=== PATIENT | female | born 1985 | race Caucasian/White ===

== ENCOUNTER 2021-06-25 08:44 | Emergency (ER) | payer OTHER, SELFPAY ==
--- NOTE | ~2021-06-25 | CT_ITS ---
EXAMINATION: CT abdomen pelvis w con DATE: 06/25/2021 10:23 INDICATION: Abdominal pain TECHNIQUE: Computed tomography (CT) of the abdomen and pelvis was performed with 100 cc Omnipaque 350 intravenous contrast. Automated exposure control and iterative reconstruction technique were employe d. Exam dose: 559.13 mGy-cm total exam DLP. COMPARISON: None. FINDINGS: The lung bases are clear. Normal heart size. No pericardial or pleural effusion. The liver, gallbladder, bile duct, spleen, pancreas, pancreatic duct, and adrenal glands and kidneys are unremarkable. No urinary tract calculus or hydroureteronephrosis. Status post hysterectomy. 2 cm left ovarian cyst. The urinary bladder is unremarkable. Normal caliber of the abdominal aorta. No intraperitoneal or retroperitoneal or pelvic mass lesion or adenopathy or ascites. Normal appendix. There is mild diverticulosis of left colon. There is prominent pericolic fat stranding as well as thi ckening of the anterior pararenal and lateroconal fascia in the region of the distal descending colon , consistent with diverticulitis. No abscess or intraperitoneal free air is identified. Small fat-containing umbilical hernia. Included skeletal structures are unremarkable. IMPRESSION: Diverticulitis of the distal descending colon; no abscess or free air identified Reviewed, dictated and finalized at [facility]. Reviewed, dictated and finalized at [facility]. [employer]
[2021-06-25 08:49] VITALS: BP 138/96; PULSE 104; RESP 20; TEMP 36.8; O2SAT 100
[2021-06-25 08:58] VITALS: PULSE 109; RESP 15; O2SAT 100
[2021-06-25 09:00] VITALS: PULSE 108; RESP 28; O2SAT 100
[2021-06-25 09:01] VITALS: BP 134/97; PULSE 108; RESP 25; O2SAT 100
[2021-06-25 09:15] VITALS: PULSE 100; RESP 18; O2SAT 99
[2021-06-25 09:15] LABS: Basophils Absolute Auto 0.1 K/mm3 (0.0-0.1); Basophils Percent Auto 0.4 % (0.2-1.2); Eosinophils Absolute Auto 0.1 K/mm3 (0-0.3); Eosinophils Percent Auto 0.4 % (0-4.4); Hematocrit 41.1 % (37.0-47.0); Hemoglobin 14.7 g/dL (12.0-15.0); Immature Granulocyte Absolute 0.05 K/mm3 (0.00-0.031); Immature Granulocyte Percent A 0.4 % (0-0.5); Lymphocytes Absolute Auto 1.73 K/mm3 (0.9-3.2); Lymphocytes Percent Auto 13.1 % (18.3-44.2); Mean Corpuscular HGB Conc 35.8 g/dl (32-36); Mean Corpuscular Hemoglobin 31.8 pg (26-34); Mean Platelet Volume 10.2 fl (7.4-10.4); Monocytes Percent Auto 7.7 % (2.6-8.5); Neutrophils Absolute Auto 10.3 K/mm3 (1.3-6.7); Platelet Count Result 292 k/mm3 (150-375); Red Blood Count 4.62 M/mm3 (4.2-5.4); Red Cell Distribution Width 11.9 % (11.5-14.5); White Blood Count 13.2 K/mm3 (4.5-10.0)
[2021-06-25 09:16] VITALS: BP 120/91; PULSE 99; RESP 12; O2SAT 99
--- NOTE | 2021-06-25 09:18 | ED.ABDPAIN ---
HPI - Abdominal Pain General Chief Complaint: Abdominal Pain Stated Complaint: rlq pain Time Seen by Provider: 06/25/21 09:10 Source: patient and RN notes reviewed Mode of arrival: ambulatory Limitations: no limitations History of Present Illness HPI narrative: Patient is a 36-year-old female who presents to emergency department for evaluation of abdominal pain that began over the course of the last 24 hours starting is an aching pain in the abdomen that has intensified with generalized pain throughout the abdomen worse with activity and movement patient does note some decreased appetite denies any diarrhea constipation urinary vaginal complaints or URI symptoms. Patient is not take anything for her symptoms. Patient now complains of severe abdominal pain Related Data Home Medications Medication Instructions Recorded Confirmed desvenlafaxine succinate 50 mg PO 06/25/21 Allergies Allergy/AdvReac Type Severity Reaction Status Date / Time codeine Allergy Mild itching Verified 06/25/21 09:15 Review of Systems Review of Systems: All systems reviewed & are unremarkable except as noted in HPI and below PMFSH Surgical History Surgical History H/O: hysterectomy Social History Social History (Updated 06/25/21 @ 10:26 by Padilla Steve PA-C) Smoking status: Never smoker Exam Narrative: GENERAL: Well-appearing, well-nourished, uncomfortable appearing, and in no acute distress. HEAD: Normocephalic, atraumatic. EYES: PERRLA and EOMI. ENT: Nares clear, no rhinorrhea or epistaxis. Mucous membranes moist. CHEST: Clear to auscultation. No respiratory distress. No wheezes rales or rhonchi HEART: Regular rate and rhythm. No murmur heard. Normal peripheral pulses. ABDOMEN: Firm, nondistended, generalized tenderness with voluntary guarding EXTREMITIES: Normal range of motion. No edema. SKIN: Warm, dry, no rash. NEURO: No focal deficits. Alert and oriented x3. Normal speech PSYCH: Normal mood and affect. Course Course Emergency Course: Patient presented with GI issues was evaluated with CAT scan imaging and blood work found to have uncomplicated diverticulitis she is aware of these case findings she had improvement with pain medications antiemetics and fluids will be discharged home with GI follow-up and indications for return she is afebrile nontoxic-appearing nondistressed felt appropriate for outpatient reevaluation Reevaluation(s) Reevaluation #1: Patient reevaluated still having pain after initial interventions will be given more pain medication while waiting for imaging Date: 06/25/21 Time: 10:27 Reevaluation #2: Patient presented with abdominal pain had improvement with medications resting in the room at this time nondistressed she is aware of case findings treatment plan and diagnosis feeling better with interventions Date: 06/25/21 Time: 11:55 Vital Signs Vital signs: Vital Signs Temperature 98.3 F 06/25/21 08:49 Pulse Rate 104 H 06/25/21 08:49 Respiratory Rate 20 06/25/21 08:49 Blood Pressure 138/96 H 06/25/21 08:49 Pulse Oximetry 100 06/25/21 08:49 Temperature 98.3 F 06/25/21 08:49 Pulse Rate 99 06/25/21 09:16 Respiratory Rate 12 06/25/21 09:16 Blood Pressure 120/91 H 06/25/21 09:16 Pulse Oximetry 99 06/25/21 09:16 MDM - Abdominal Pain MDM Narrative Medical decision making narrative: Patient presented with abdominal pain found to have uncomplicated diverticulitis ABCs and vital signs intact and stable hemodynamically stable no high risk changes in the blood work will be discharged home with plan outpatient follow-up with gastroenterology and primary care she has been given strict indications for return and agrees to do so if symptoms worsen Lab Data Result diagrams: 06/25/21 09:01 06/25/21 09:25 Labs: Lab Results 06/25/21 06/25/21 06/25/21 Range/Units 08:53 09:01 09:25 WBC 13
[2021-06-25 09:20] LABS: Add Urine Microscopic? YES; Appearance Urine Clear (Clear); Bilirubin Urine Negative (Negative); Blood Urine 1+ (Negative); Color Urine Yellow (Yellow); Glucose Urine UA Negative (Negative); Ketones Urine Negative (Negative); Leukocyte Esterase Ur Negative LEU/UL (Negative); Mucus Urine Moderate /lpf; Nitrate Urine Negative (Negative); Protein Urine Negative (Negative); Squamous Epithelial Cell Urine Many /hpf (Few); Urobilinogen Urine Negative mg/dL (<2.0); WBC Urine 0-3 /hpf
[2021-06-25] MEDS: SODIUM CHLORIDE 0.9% IV 1,000 ML 999 ML IV CONT (09:27)
[2021-06-25] MEDS: ONDANSETRON INJ 4 MG/2 ML VIAL IV PUSH (09:28)
[2021-06-25] MEDS: FAMOTIDINE 20 MG/2 ML VIAL IV PUSH (09:28)
[2021-06-25 10:01] LABS: Alanine Aminotransferase 19 U/L (4-35); Albumin Level 4.3 g/dL (3.5-5.1); Alkaline Phosphatase 86 U/L (38-126); Anion Gap 4 mmol/L (8-16); Aspartate Amino Transferase 21 U/L (14-36); Bilirubin,Total 0.9 mg/dL (0.2-1.3); Blood Urea Nitrogen 7 mg/dL (7-17); Calcium 8.8 mg/dL (8.4-10.2); Carbon Dioxide 24 mmol/L (22-30); Chloride 106 mmol/L (98-107); Estimated CRCL calculation 96 ml/min; Estimated Glomerular Filt Rate > 60; Glucose 112 mg/dL (65-110); Lipase 26 U/L (23-300); Potassium 3.8 mmol/L (3.4-5.0); Sodium 134 mmol/L (137-145)
[2021-06-25] MEDS: MORPHINE SULFATE (*CRX) 4 MG/ML INJ IV PUSH (10:10)
[2021-06-25] MEDS: KETOROLAC 30 MG/ML VIAL (*BKC) IV PUSH (11:32)
== END 2021-06-25 12:15 | disposition home or self-care (01) ==
PROVIDERS: Emergency Provider Emergency Medicine; PCP Family Medicine
DX: K57.32 Diverticulitis of large intestine without perforation or abscess without bleeding (principal)
CPT/HCPCS: 36415; 74177; 80053; 81001; 83690; 85025; 96361; 96365; 96375; 99284; J0131; J1885; J2270; J2405; J7030; Q9967

== ENCOUNTER 2024-03-08 20:28 | Emergency (ER) | payer OTHER, SELFPAY ==
--- NOTE | ~2024-03-08 | CT_ITS ---
EXAMINATION: CT abdomen pelvis w con DATE: 03/08/2024 23:12 INDICATION: Right upper quadrant abdominal pain. TECHNIQUE: Computed tomography (CT) of the abdomen and pelvis was performed with 100 mL Omnipaque 350 intravenous contrast. Automated exposure control and iterative reconstruction technique were employe d. The dose-length product was 362.64 mGy-cm. COMPARISON: CT abdomen and pelvis 06/25/2021 FINDINGS: The visualized portions of the lung bases demonstrate groundglass opacities in right middle lobe. No pleural effusion. The heart size is normal. No pericardial effusion. The liver, gallbladder , spleen, pancreas, adrenal glands, and right kidney are normal. There is a 6 mm cyst in left kidney. There are no dilated loops of bowel. The appendix is normal. There are no pathologically enlarged ly mph nodes. There is no free intraperitoneal fluid. There is a 4.1 cm mass of mixed density in right o vary, probably a hemorrhagic cyst. There is a 4.6 cm cyst in right ovary, likely a follicular cyst. T here is a corpus luteum cyst in left ovary. There is a 3.1 cm cyst in left ovary, likely a follicular cyst. There is physiologic fluid in the pelvis. There are no pathologically enlarged lymph nodes. Th ere is mild thoracic spondylosis. IMPRESSION: 1. Groundglass opacities in right lung middle lobe, consistent with atelectasis versus pneumonia. 2. 4.1 cm mass in right ovary, probably a hemorrhagic cyst. Pelvis ultrasound is recommended. 3. 4.6 cm cyst in right ovary, likely a follicular cyst. 4. 3.1 cm cyst in left ovary, likely a follicular cyst. Reviewed, dictated and finalized at [facility]. IMPRESSION: 1. Groundglass opacities in right lung middle lobe, consistent with atelectasis versus pneumonia. 2. 4.1 cm mass in right ovary, probably a hemorrhagic cyst. Pelvis ultrasound i s recommended. 3. 4.6 cm cyst in right ovary, likely a follicular cyst. 4. 3.1 cm cyst in left ovary, likely a follicular cyst.
--- NOTE | ~2024-03-08 | US_ITS ---
Pelvic ultrasound. Clinical History: Right lower quadrant pain Technique: Realtime transabdominal and transvaginal scanning of the pelvis was performed. Color flow Doppler and Doppler spectral analysis were performed. Findings: The uterus is nonvisualized. The right ovary measures 7.0 x 5.0 cm. There is a 4.0 x 3.8 x 3.3 cm probable acute hemorrhagic cyst with heterogeneous internal echoes, most compatible with blood products, but no internal vascularity evident. There is an additional 5.5 x 2.7 x 4.0 cm simple right ovarian cyst.. The left ovary measures 4.2 x 2.9 x 3.4 cm. Left ovarian cyst measures 3.2 x 3.0 x 3.1 cm, likely res olving hemorrhagic cyst with small amount of eccentric blood products. No distinct evidence for torsion. Vascular flow present in both ovaries on color Doppler analysis. There is small amount of free fluid in the pelvis. Impression: No evidence of torsion. 4.0 cm acute hemorrhagic right ovarian cyst. Additional 5.5 cm simple right ovarian cyst. 3.2 cm subacute resolving left ovarian hemorrhagic cyst. Reviewed, dictated and finalized at location . Impression: No evidence of torsion. 4.0 cm acute hemorrhagic right ovarian cyst. Additional 5.5 cm simple right ovarian cyst. 3.2 cm subacute resolving left ovarian hemorrhagic cyst.
--- NOTE | ~2024-03-08 | XR_ITS ---
EXAMINATION: XR chest 2V DATE: 03/08/2024 20:56 INDICATION: Shortness of breath. TECHNIQUE: Frontal and lateral views of the chest were obtained. COMPARISON: Chest 2 views 10/13/2012 FINDINGS: There is no pneumonia, pleural effusion, or pneumothorax. The heart size is normal. IMPRESSION: 1. No acute cardiopulmonary disease. Reviewed, dictated and finalized at [facility].
[2024-03-08 20:36] VITALS: BP 138/81; PULSE 95; RESP 15; TEMP 36.6; O2SAT 100
--- NOTE | 2024-03-08 20:36 | ECG_ITS ---
Test Date: 2024-03-08 20:39:33 Measurements Intervals [place] Rate: 90 P: 73 UT: 137 QRS: 54 QRSD: 82 T: 36 QT: 339 QTc: 415 Interpretive Statements SINUS RHYTHM WITH SINUS ARRHYTHMIA POSSIBLE LEFT ATRIAL ENLARGEMENT [-0.1mV P WAVE IN V1/V2] No previous ECG available for comparison Electronically Signed On 03-09-2024 09:41:29 CDT by Elijah Thurman M.D.
[2024-03-08 21:48] VITALS: O2SAT 100
[2024-03-08 21:49] VITALS: BP 116/97; PULSE 73; RESP 14; TEMP 36.7; O2SAT 100
[2024-03-08 21:57] LABS: Basophils Absolute Auto 0.1 K/mm3 (0.0-0.1); Basophils Percent Auto 0.7 % (0.2-1.2); Eosinophils Absolute Auto 0.2 K/mm3 (0-0.3); Eosinophils Percent Auto 2.1 % (0-4.4); Hematocrit 35.5 % (37.0-47.0); Hemoglobin 12.5 g/dL (12.0-15.0); Immature Granulocyte Absolute 0.02 K/mm3 (0.00-0.031); Immature Granulocyte Percent A 0.2 % (0-0.5); Lymphocytes Absolute Auto 1.94 K/mm3 (0.9-3.2); Lymphocytes Percent Auto 20.3 % (18.3-44.2); Mean Corpuscular HGB Conc 35.2 g/dl (32-36); Mean Corpuscular Hemoglobin 32.2 pg (26-34); Mean Corpuscular Volume 91.5 fl (80-100); Mean Platelet Volume 9.3 fl (7.4-10.4); Monocytes Absolute Auto 0.9 K/mm3 (0.1-0.6); Monocytes Percent Auto 9.4 % (2.6-8.5); Neutrophils Absolute Auto 6.4 K/mm3 (1.3-6.7); Neutrophils Percent Auto 67.3 % (45.5-73.1); Platelet Count Result 256 k/mm3 (150-375); Red Blood Count 3.88 M/mm3 (4.2-5.4); Red Cell Distribution Width 11.6 % (11.5-14.5); White Blood Count 9.6 K/mm3 (4.5-10.0)
[2024-03-08 22:07] LABS: Alanine Aminotransferase 14 U/L (6-35); Albumin Level 3.9 g/dL (3.5-5.1); Alkaline Phosphatase 56 U/L (38-126); Anion Gap 6 mmol/L (4-12); Aspartate Amino Transferase 17 U/L (14-36); Bilirubin,Total 0.3 mg/dL (0.2-1.3); Blood Urea Nitrogen 13 mg/dL (7-17); Calcium 8.7 mg/dL (8.4-10.2); Carbon Dioxide 25 mmol/L (22-30); Chloride 108 mmol/L (98-107); Estimated CRCL calculation 85 ml/min; Estimated Glomerular Filt Rate > 60; Glucose 67 mg/dL (65-110); Potassium 3.7 mmol/L (3.4-5.0); Sodium 139 mmol/L (137-145)
[2024-03-08 22:25] LABS: Lipase 31 U/L (23-300); Magnesium 1.9 mg/dL (1.6-2.3)
[2024-03-08 22:30] LABS: SPREG INTERNAL CONTROL Positive; Serum Qual hCG Negative
[2024-03-08 22:35] LABS: Influenza A QL RT-PCR Negative (Negative); Influenza B QL RT-PCR Negative (Negative); RSV RNA, RT-PCR Negative (Negative); SARS-CoV-2 RNA PCR Negative (Negative)
[2024-03-08 22:46] LABS: Lactic Acid Reflex 0.7 mmol/L (0.7-2.0)
--- NOTE | 2024-03-08 23:02 | ED.GENADULT ---
HPI - General Adult General Chief complaint: Shortness of Breath/Dyspnea Stated complaint: SOB, cough, LRQ ab pain, pain all over Time Seen by Provider: 03/08/24 21:58 History of Present Illness HPI narrative: Patient is a 38-year-old female who presents to the emergency department this evening complaining of right upper quadrant and right lower quadrant pain since Thursday. Patient states the pain has been persistent but has gotten worse throughout the past few days. Patient admits that she is also having nausea, vomiting and diarrhea. Denies any fevers or chills at home but admits that she has been having URI symptoms with a cough and states that some family member at home is getting over pertusses. Denies any urinary symptoms including dysuria or hematuria. There are no additional modifying, alleviating, or precipitating factors at this Related Data Home Medications Medication Instructions Recorded Confirmed desvenlafaxine succinate 50 mg 50 mg PO 06/25/21 tablet,extended release 24 hr Allergies Allergy/AdvReac Type Severity Reaction Status Date / Time codeine Allergy Mild itching Verified 03/08/24 20:40 Review of Systems Review of Systems: All systems are reviewed and are negative unless stated otherwise in the HPI. [facility] Surgical History Surgical History H/O: hysterectomy Social History Social History Smoking status: Never smoker Exam Narrative: General: Alert, awake, afebrile, in no acute distress. HEENT: PERRL, no rhinorrhea, no post nasal drip, oropharynx clear. Cardiovascular: Regular rate and rhythm, no murmurs, rubs or gallops, no peripheral edema. Respiratory: Clear to auscultation bilaterally, no tachypnea, no wheezing, no rhonchi, no rubs, no respiratory distress. Abdomen: Soft, no tenderness to palpation over all 4 quadrants, nondistended, no rebound, no guarding, no peritoneal signs. Musculoskeletal: No joint swelling or deformity, normal muscle tone. Skin: No rashes or petechia, no signs of infection. Psychiatric: Alert and oriented, normal behavior and judgment for situation. Neurological: Alert and oriented to person, place, and time. Follows all commands. No focal deficits, speech is clear and fluent. Course Vital Signs Vital signs: Vital Signs Temperature 97.9 F 03/08/24 20:36 Pulse Rate 95 03/08/24 20:36 Respiratory Rate 15 03/08/24 20:36 Blood Pressure 138/81 03/08/24 20:36 Pulse Oximetry 100 03/08/24 20:36 Oxygen Delivery Room Air 03/08/24 20:36 Temperature 98.1 F 03/08/24 21:49 Pulse Rate 73 03/08/24 21:49 Respiratory Rate 14 03/08/24 21:49 Blood Pressure 116/97 H 03/08/24 21:49 Pulse Oximetry 100 03/08/24 21:49 Oxygen Delivery Room Air 03/08/24 21:48 Medical Decision Making MDM Narrative Medical decision making narrative: The patient was evaluated by myself in the emergency department. History is obtained from patient who is an independent historian and physical exam was performed. External medical records were reviewed at this time. IV was established and pertinent tests were ordered. Patient was administered 2 mg of IV morphine for pain and 4 mg IV Zofran for nausea. Laboratory results obtained revealing no acute process. Imaging studies obtained included a CXR which was independently interpreted by me revealing no acute cardiopulmonary process. CT abdomen and pelvis with IV which was independently interpreted by me revealin. Groundglass opacities in right lung middle lobe, consistent with atelectasis versus pneumonia. 2. 4.1 cm mass in right ovary, probably a hemorrhagic cyst. Pelvis ultrasound is recommended. 3. 4.6 cm cyst in right ovary, likely a follicular cyst. 4. 3.1 cm cyst in left ovary, likely a follicular cyst. At this time pelvic ultrasound was also obtained to rule out ovarian torsion
[2024-03-08] MEDS: MORPHINE SULFATE (*CRX) 2 MG/ML INJ IV PUSH (23:52)
[2024-03-08] MEDS: ONDANSETRON INJ 4 MG/2 ML VIAL IV PUSH (23:52)
[2024-03-09 01:30] VITALS: BP 114/79; PULSE 72; RESP 14; O2SAT 98
[2024-03-09] MEDS: KETOROLAC 15 MG/ML VIAL (*BKC) IV PUSH (02:13)
[2024-03-09 02:30] VITALS: BP 119/81; PULSE 78; RESP 14; O2SAT 100
== END 2024-03-09 02:32 | disposition home or self-care (01) ==
PROVIDERS: Emergency Provider Emergency Medicine; PCP Family Medicine
DX: J18.9 Pneumonia, unspecified organism (principal); R10.9 Unspecified abdominal pain; N83.202 Unspecified ovarian cyst, left side; N83.201 Unspecified ovarian cyst, right side; R06.02 Shortness of breath; Z20.822 Contact with and (suspected) exposure to COVID-19
CPT/HCPCS: 36415; 71046; 74177; 76830; 76856; 80053; 83605; 83690; 83735; 84703; 85025; 87637; 93005; 96374; 96375; 99284; J1885; J2270; J2405; Q9967